=== PATIENT | male | born 1955 | race African-American/Black ===

== ENCOUNTER 2017-02-16 11:39 | Emergency (ER) | payer OTHER ==
[~2017-02-16] VITALS: Ht 177.8 cm; Wt 90.7 kg
[~2017-02-16 11:39] MED LIST: ASPIR 8181 MG PO; CO-Q-10 200 MG-1 SGL PO; MASON NATURAL1200 MG PO
--- NOTE | 2017-02-16 12:53 | ED SKIN/ALLERGY COMPLAINT ---
History of Present Illness General Chief Complaint: Laceration Procedure Stated Complaint: LAC TO RT HAND Source: patient Exam Limitations: no limitations Vital Signs & Intake/Output Vital Signs & Intake/Output Vital Signs Date Time Temp Pulse Resp B/P B/P Pulse O2 O2 Flow FiO2 Mean Ox Delivery Rate 02/16 1330 97.0 70 17 128/60 96 Room Air 02/16 1141 97.3 71 18 132/65 97 Room Air Room Air ED Intake and Output 02/17 0000 02/16 1200 Intake Total Output Total Balance Patient 200 lb Weight Weight Reported by Patient Measurement Method Allergies Coded Allergies: NO KNOWN ALLERGIES (08/27/14) Reconcile Medications Aspirin (Ecotrin) 81 MG TABLET.DR 1 TAB PO DAILY HEART HEALTH (Reported) Coenzyme Q10/Vitamin E (Co-Q-10 200 MG-1 Iu) 1 SGL SGL 1 SGL PO DAILY SUPPLEMENT (Reported) OMEGA-3 FATTY ACIDS/FISH OIL (Fish Oil 1,200 MG Softgel) 360 MG-1,200 MG CAPSULE 1 SGL PO DAILY SUPPLEMENT (Reported) Triage Note: TRIAGE: 62 Y/O MALE PRESENTS C/O 1 INCH LAC TO RIGHT HAND YESTERDAY. NO ACTIVE BLEEDING NOTED. TELFA PPLIED TO LAC IN TRIAGE AFTER PATIENT SUCCESSFULLY ABLE TO WASH HIS HANDS WITH SOAP AND WATER. Triage Nurses Notes Reviewed? yes Onset: Abrupt Duration: hour(s): (18), constant, continues in ED Timing: single episode today Severity: mild, moderate Severity Numbers: 4 Location: hands (rt) No Modifying Factors: none HPI: 62-year-old male with no significant past medical history presents for evaluation of a laceration to the dorsum of the right hand. Patient reports possibly 18 hours ago he was in his backyard cleaning his grill when he accidentally scraped his having as a sharp piece of metal. Patient reports he immediately washed the area and applied a dressing to control bleeding. He denies any other injuries. Pain is located around the laceration on the dorsum of the right hand. Is worse than typical movement or touching the area. Patient currently reports the pain is a 4 out of 10 and does not radiate. No other associated symptoms. He is not up-to-date on tetanus. Past History Travel History Traveled to [place] past 21 day No Medical History Any Pertinent Medical History? see below for history Neurological: NONE EENT: NONE Cardiovascular: NONE Respiratory: NONE Gastrointestinal: NONE Hepatic: NONE Renal: NONE Musculoskeletal: NONE Psychiatric: NONE Endocrine: NONE Blood Disorders: NONE Cancer(s): NONE OTR REFRIGERATED CDL TRUCK DRIVER/Reproductive: NONE Surgical History Surgical History: none Psychosocial History What is your primary language Turkmen Tobacco Use: Never used ETOH Use: denies use Illicit Drug Use: denies illicit drug use Family History Hx Contributory? Yes Review of Systems Review of Systems Constitutional: Reports: no symptoms. EENTM: Reports: no symptoms. Respiratory: Reports: no symptoms. Cardiovascular: Reports: no symptoms. GI: Reports: no symptoms. Genitourinary: Reports: no symptoms. Musculoskeletal: Reports: no symptoms. Skin: Reports: see HPI (laceration). Neurological/Psychological: Reports: no symptoms. Hematologic/Endocrine: Reports: no symptoms. Immunologic/Allergic: Reports: no symptoms. All Other Systems: Reviewed and Negative Physical Exam Physical Exam General Appearance: well developed/nourished, no apparent distress, alert, awake Head: atraumatic, normal appearance Eyes: Bilateral: normal appearance, PERRL, EOMI. Ears, Nose, Throat: normal pharynx, normal ENT inspection, hearing grossly normal Neck: normal inspection, supple, full range of motion Respiratory: normal breath sounds, chest non-tender, no respiratory distress Cardiovascular: regular rate/rhythm, normal peripheral pulses Peripheral Pulses: 2+ radial (R), 2+ radial (L) Gastrointestinal: normal bowel sounds, soft, non-tender Back: normal inspection, normal range of motion Extremities: normal capillary refill, normal range of motion, no edema Neurologic/Psych: no motor/sensory deficits, awake, alert, oriented x 3, normal gait, normal mood/affect Skin: normal color, warm/dry Skin Problem Location: upper extremities (rt hand dorsum) Skin Problem Character: linear (laceration) Lymphatic: no anterior cervical enrique Comments: There is a 1.5 cm linear laceration located on the dorsum of the right hand. No foreign bodies. Full range of motion of the digits of the right hand. Neurovascular supply intact. Progress Differential Diagnosis: abscess/cellulitis, allergic reaction, laceration, tendon injury, fb Plan of Care: Current Medications Sig/Braden Start time Last Medication Dose Stop Time Status Admin Tetanus/Diphtheria 0.5 ML ONCE ONE 02/16 1315 UNVr Toxoids Adsorbed 02/16 1316 (Decavac) Consent obtained. Lidocaine 1% without epi administered for local pain control. Wound was debrided and sutured using 4 4-0 nylon simple interrupted sutures. Dressing applied. Tetanus updated. Patient will be discharged home with wound care instructions. Tylenol as needed for pain. Return to emergency department or primary care doctor in 7-10 days for suture removal. Patient nontoxic appearing at discharge he is in agreement with the plan. (FIDELIA LEIVA PA-C) Departure Departure Disposition: HOME OR SELF CARE Condition: Stable Clinical Impression Primary Impression: Laceration of hand Qualifiers: Encounter type: initial encounter Foreign body presence: without foreign body Laterality: right Qualified Code: S61.411A - Laceration without foreign body of right hand, initial encounter Referrals: TANIYA RIVER MD (PCP/Family) Additional Instructions: rest and keep the area clean and dry. Change dressing and apply bacitracin once daily for the next 3-4 days. After that keep the wound open to air dry. Try to avoid excessive movement of the hand. Use Tylenol or ibuprofen as needed for pain. Look out for signs of infection such as redness swelling discharge or pain. Sutures will be removed in 7 days. Return to the emergency Department with any concerns. Departure Forms: Customer Survey General Discharge Information Procedures Laceration/Wound Repair Laceration/Wound Repair: Wound Location: upper extremity (rt hand dorsum) Wound's Depth, Shape: linear, subcutaneous Wound Length (cm): 1.5 Wound Explored: clean, no foreign body removed Irrigated w/ Saline (ccs): 20 Betadine Prep? Yes Anesthesia: 1% lidocaine Volume Anesthetic (ccs): 4 Wound Debrided: moderate Wound Repaired With: sutures Suture Size/Type: 4:0, nylon Number of Sutures: 4 Layer Closure? No Sterile Dressing Applied: Yes Splint Applied? No Date of Last Tetanus: 02/17/17 Tetanus Status: not up to date
[2017-02-16 13:30] VITALS: BP 128/60
== END 2017-02-16 13:55 ==
LOC: ERH 11:39
DX: S61.411A Laceration without foreign body of right hand, initial encounter (principal); W45.8XXA Other foreign body or object entering through skin, initial encounter; Y93.G2 Activity, grilling and smoking food; Y92.9 Unspecified place or not applicable
CPT/HCPCS: 90471; 90714

== ENCOUNTER 2017-11-23 18:10 | Emergency (ER) | payer OTHER ==
--- NOTE | 2017-11-23 18:56 | ED GI/GU/ABDOMINAL COMPLAINT ---
History of Present Illness General Chief Complaint: Abdominal Pain/Flank Pain Stated Complaint: ABD PAIN, NAUSEA AND DIARRHEA Source: patient Exam Limitations: no limitations Vital Signs & Intake/Output Vital Signs & Intake/Output Vital Signs Date Time Temp Pulse Resp B/P B/P Pulse O2 O2 Flow FiO2 Mean Ox Delivery Rate 11/23 2038 98.6 67 18 124/82 99 Room Air 11/23 1816 96.2 67 18 178/79 96 Room Air ED Intake and Output 11/24 0000 11/23 1200 Intake Total 1000 Output Total Balance 1000 Intake, IV 1000 Intake, Oral 0 Patient 200 lb Weight Allergies Coded Allergies: NO KNOWN ALLERGIES (08/27/14) Reconcile Medications Aspirin (Ecotrin) 81 MG TABLET.DR 1 TAB PO DAILY HEART HEALTH (Reported) Coenzyme Q10/Vitamin E (Co-Q-10 200 MG-1 Iu) 1 SGL SGL 1 SGL PO DAILY SUPPLEMENT (Reported) Hydrocodone/Acetaminophen (Slick 5-325 Tablet) 5 MG-325 MG TABLET 1-2 TAB PO Q4-6 PRN PRN pain OMEGA-3 FATTY ACIDS/FISH OIL (Fish Oil 1,200 MG Softgel) 360 MG-1,200 MG CAPSULE 1 SGL PO DAILY SUPPLEMENT (Reported) Omeprazole 20 MG TABLET.DR 1 TAB PO DAILY acid reflux Ondansetron (Zofran Odt) 4 MG TAB.RAPDIS 1 TAB SL TID PRN nausea Triage Note: PER PT THIRD TIME THIS MONTH, MID ABD PAIN PT UNABLE TO DETERMINE ANY CORALATION WITH EATING OR DRINKING AND PAIN, NO NVD BUT SOETIMES FEELS LIKE I WANT TO BE SICK PT VERY VAGUE Triage Nurses Notes Reviewed? yes Onset: Abrupt Duration: day(s): (2), changing over time, continues in ED, getting worse Timing: recent history Quality/Severity: cramping, moderate Severity Numbers: 8 Location: generalized abdomen Radiation: no radiation Activities at Onset: none Prior Abdominal Problems: similar symptoms Past Sexual History: Unobtainable at this time No Modifying Factors: none Modifying Factors: Worsens With: palpation. Associated Symptoms: abdominal pain, loss of appetite, nausea/vomiting HPI: 62-year-old male with no past medical history presents for evaluation of abdominal pain nausea and vomiting. Patient states that this current episode started a few days ago that has been persistent. The pain is located diffusely in his abdomen worse in the periumbilical area does not radiate. He describes it as cramping. The pain will intermittently get more severe. It is associated with nausea or vomiting. No diarrhea no melena. Patient states he had similar symptoms on 3 separate occasions over the past 1-2 months. This is first time being evaluated this the most severe episode. He currently rates pain as an 8 out of 10. He is not taking any medicine for this. He denies chest pain shortness of breath hemoptysis recent travel or recent antibiotics. He states that he is not eating and drinking much due to his nausea. Nothing seems to make the pain better or worse. No recent abdominal surgeries. (Don Dent) Past History Travel History Traveled to [place] past 21 day No Medical History Any Pertinent Medical History? see below for history Neurological: NONE EENT: NONE Cardiovascular: NONE Respiratory: NONE Gastrointestinal: NONE Hepatic: NONE Renal: NONE Musculoskeletal: NONE Psychiatric: NONE Endocrine: NONE Blood Disorders: NONE Cancer(s): NONE ARCHITECT INTERNSHIP/Reproductive: NONE Tetanus Vaccine: 02/17/17 Surgical History Surgical History: none Psychosocial History What is your primary language Nepali Tobacco Use: Never used Family History Hx Contributory? No (Don Dent) Review of Systems Review of Systems Constitutional: Reports: no symptoms. EENTM: Reports: no symptoms. Respiratory: Reports: no symptoms. Cardiovascular: Reports: no symptoms. GI: Reports: see HPI, abdominal pain, nausea, vomiting. Genitourinary: Reports: no symptoms. Musculoskeletal: Reports: no symptoms. Skin: Reports: no symptoms. Neurological/Psychological: Reports: no symptoms. Hematologic/Endocrine: Reports: no symptoms. Immunologic/Allergic: Reports: no symptoms. All Other Systems: Reviewed and Negative (Don Dent) Physical Exam Physical Exam General Appearance: well developed/nourished, no apparent distress, alert, awake Head: atraumatic, normal appearance Eyes: Bilateral: normal appearance, PERRL, EOMI, normal inspection. Ears, Nose, Throat, Mouth: hearing grossly normal, moist mucous membrane Neck: normal inspection, supple, full range of motion Respiratory: normal breath sounds, chest non-tender, no respiratory distress, lungs clear Cardiovascular: regular rate/rhythm, normal peripheral pulses Peripheral Pulses: 2+ radial (R), 2+ radial (L) Gastrointestinal: normal bowel sounds, soft, no organomegaly, tenderness ( diffuse ) Rectal: normal inspection, normal rectal tone, heme negative stool Back: normal inspection, normal range of motion, no vertebral tenderness Extremities: normal range of motion Neurologic/Psych: no motor/sensory deficits, awake, alert, oriented x 3, normal gait Skin: intact, normal color, warm/dry Core Measures ACS in differential dx? No Sepsis Present: No Sepsis Focused Exam Completed? No (Da MARTIN,Don) Progress Differential Diagnosis: appendicitis, biliary colic, bowel obstruction, colon cancer, cholecystitis, diverticulitis, gastritis, hepatitis, ischemic bowel, inflamm bowel dis, pancreatitis, peptic ulcer, PUD/GERD, pyelonephritis, SBO, ureterolithiasis, urinary retention, urethritis, UTI/pyelo Plan of Care: Orders Procedure Date/time Status TROPONIN LEVEL 11/23 2029 Complete LIPASE 11/23 2029 Complete COMPREHENSIVE METABOLIC PANEL 11/23 2029 Complete CBC WITHOUT DIFFERENTIAL 11/23 2029 Complete EKG 11/23 1859 Active Laboratory Tests 11/23/172146: Urine Color Cancelled, Urine Clarity Cancelled, Urine pH Cancelled, Ur Specific [place] Cancelled, Urine Protein Cancelled, Urine Ketones Cancelled, Urine Nitrite Cancelled, Urine Bilirubin Cancelled, Urine Urobilinogen Cancelled, Ur Leukocyte Esterase Cancelled, Ur Microscopic Cancelled, Urine Hemoglobin Cancelled, Urine Glucose Cancelled 11/23/172112: Anion Gap 15, Estimated GFR > 60, BUN/Creatinine Ratio 10.0, Glucose 108 H, Calcium 10.1, Total Bilirubin 0.6, AST 31, ALT 29, Alkaline Phosphatase 60, Troponin I < 0.01, Total Protein 7.8, Albumin 4.5, Globulin 3.3, Albumin/ Globulin Ratio 1.4, Lipase 93, CBC w Diff NO MAN DIFF REQ, RBC 4.64 L, MCV 83.3 , MCH 26.9 L, MCHC 32.3 L, RDW 14.5, MPV 8.7, Gran % 86.1 H, Lymphocytes % 11.7 L, Monocytes % 2.0, Eosinophils % 0.1, Basophils % 0.1, Absolute Granulocytes 6.0, Absolute Lymphocytes 0.8 L, Absolute Monocytes 0.1, Absolute Eosinophils 0, Absolute Basophils 0 11/23/171944: Sodium Cancelled, Potassium Cancelled, Chloride Cancelled, Carbon Dioxide Cancelled, Anion Gap Cancelled, BUN Cancelled, Creatinine Cancelled, BUN/ Creatinine Ratio Cancelled, Glucose Cancelled, Calcium Cancelled, Total Bilirubin Cancelled, AST Cancelled, ALT Cancelled, Alkaline Phosphatase Cancelled, Troponin I Cancelled, Total Protein Cancelled, Albumin Cancelled, Globulin Cancelled, Albumin/Globulin Ratio Cancelled, Lipase Cancelled, CBC w Diff Cancelled, WBC Cancelled, RBC Cancelled, Hgb Cancelled, Hct Cancelled, MCV Cancelled, MCH Cancelled, MCHC Cancelled, RDW Cancelled, Plt Count Cancelled, MPV Cancelled Patient seen and evaluated. He has diffuse abdominal tenderness to palpation. Is also reporting nausea. Vital signs are stable. Patient will be medicated with IV Tylenol IV fluids and Zofran. We'll check basic labs CT scan EKG. Patient is still reporting significant pain despite Tylenol. He was given 4 mg of IV morphine. Blood work not showing any acute findings. Rectal exam is negative for blood. CT scan does not show any acute findings but there are some large gallstones in the gallbladder. He has no right upper quadrant tenderness on reevaluation. No signs of inflammation of the gallbladder. LFTs are within normal limits normal alkaline phosphatase. Patient was given a GI cocktail and IV Protonix. He reports significant improvement after this. He was able tolerate food and fluids here. Patient will be given a prescription for omeprazole and Zofran and Slick. Advised him to restaurant plenty of fluids avoid greasy fatty spicy foods. Follow-up with general surgery regarding cholelithiasis. Discussed return precautions in detail. Patient appears well he agrees the plan. Diagnostic Imaging: Viewed by Me: CT Scan. Discussed w/RAD: CT Scan. Radiology Impression: PATIENT: PETRONA PEREZ PRESENT AGE: 62 PATIENT ACCOUNT NO: [id number] : 53 LOCATION: [facility] ORDERING PHYSICIAN: Don MARTIN SERVICE DATE: 11/23/17 EXAM TYPE: CAT - CT ABD & PELVIS W IV CONTRAST EXAMINATION: CT ABDOMEN AND PELVIS WITH CONTRAST CLINICAL INFORMATION: Left lower quadrant and right upper quadrant pain. COMPARISON: None TECHNIQUE: Multidetector volumetric imaging was performed of the abdomen and pelvis following IV administration of 95 mL of Optiray 320 intravenous contrast. Sagittal and coronal reformatted images were obtained on the technologist's workstation. DLP: 518.90 mGy-cm FINDINGS: LUNG BASES: The visualized lung bases are unremarkable. LIVER, GALLBLADDER, AND BILIARY TREE: The liver is normal in size, shape, and attenuation. No focal hepatic lesion or biliary ductal dilatation is present. There is a large peripherally calcified gallstone in the dependent gallbladder near the gallbladder neck measuring up to 2.6 cm. No gallbladder wall thickening or pericholecystic fluid. The common bile duct is normal. PANCREAS: Unremarkable. SPLEEN: Punctate calcifications in the spleen likely represents sequela of granulomatous disease. ADRENAL GLANDS: Unremarkable. KIDNEYS AND URETERS: The kidneys are normal in size, shape, and attenuation. No hydronephrosis, hydroureter, or calculi seen. Two tiny hypodensities in the right kidneys are too small to characterize but most likely represent tiny renal cysts. No perinephric stranding. BLADDER: Unremarkable. GASTROINTESTINAL TRACT: The small and large bowel are unremarkable. No significant colonic diverticula. The appendix is nonvisualized however there are no inflammatory changes in the expected location of the appendix to suggest appendicitis. ABDOMINAL WALL: No significant hernia is appreciated. LYMPH NODES: Normal. VASCULAR: Unremarkable. PELVIC VISCERA: Unremarkable. OSSEOUS STRUCTURES : Prominent flowing paravertebral osteophytes at several levels of the lower thoracic spine. No acute osseous findings. Mild to moderate osteophytic changes of both hips. IMPRESSION: Cholelithiasis without evidence of cholecystitis. If there remains concern for cholecystitis, HIDA scan would be recommended for further evaluation. No acute findings of the abdomen or pelvis. DICTATED BY: David Campos MD DATE/TIME DICTATED:11/23/172221 [employer] REPAIRER:TERRY DATE/TIME TRANSCRIBED:11/23/172221 CONFIDENTIAL, DO NOT COPY WITHOUT APPROPRIATE AUTHORIZATION. <Electronically signed in Other Vendor System> SIGNED BY: David Campos MD 11/23/172231 Initial ED EKG: normal sinus rhythm, LVH (Da MARTIN,Odn) Departure Departure Disposition: HOME OR SELF CARE Condition: Stable Clinical Impression Primary Impression: Abdominal pain Qualifiers: Abdominal location: generalized Qualified Code: R10.84 - Generalized abdominal pain Referrals: Miles LEON,Nick (PCP/Family) Magdaleno LEON,Rafael Parr Additional Instructions: Rest and drink plenty of fluids. Eat bland foods like bananas rice applesauce and toast. Use Zofran as needed for nausea. Take omeprazole as directed to reduce acid production. Slick for abdominal pain. Complete outpatient ultrasound as soon as possible. Make a follow-up appointment with her primary care doctor and provided general surgeon as soon as possible. Monitor symptoms closely. If you have worsening pain, black stool, blood in the stool, unable tolerate fluids, fever or any other concerns return immediately. Departure Forms: Customer Survey General Discharge Information Prescriptions: Current Visit Scripts Omeprazole 1 TAB PO DAILY #30 TAB Ondansetron (Zofran Odt) 1 TAB SL TID PRN nausea #15 TAB Hydrocodone/Acetaminophen (Slick 5-325 Tablet) 1-2 TAB PO Q4-6 PRN PRN pain #10 TAB (Don Dent) PA/FRUIT OR NUT FARMER Co-Sign Statement Statement: ED Attending supervision documentation- [] I saw and evaluated the patient. I have also reviewed all the pertinent lab results and diagnostic results. I agree with the findings and the plan of care as documented in the PA's/FRUIT OR NUT FARMER's documentation. [x] I have reviewed the ED Record and agree with the PA's/FRUIT OR NUT FARMER's documentation. [] Additions or exceptions (if any) to the PAs/FRUIT OR NUT FARMER's note and plan are summarized below: [] (Kar LEON,Shaq Macedo)
[2017-11-23 20:39] VITALS: BP 124/82
[2017-11-23 21:45] LABS: ABSOLUTE BASOPHIL COUNT 0 /CUMM (0.0-0.2); ABSOLUTE EOSINOPHIL COUNT 0 /CUMM (0.0-0.7); ABSOLUTE LYMPH COUNT 0.8 /CUMM (1.2-3.4); ABSOLUTE MONOCYTE COUNT 0.1 /CUMM (0.10-0.60); BASOPHIL % 0.1 % (0.0-2.0); EOSINOPHIL % 0.1 % (0-5); GRANULOCYTE % 86.1 % (42.2-75.2); HEMATOCRIT 38.6 % (42-52); MEAN CORPUSCULAR HGB 26.9 PG (27.0-31.0); MEAN CORPUSCULAR HGB CONC 32.3 G/DL (33.0-37.0); MEAN CORPUSCULAR VOLUME 83.3 FL (80.0-94.0); MEAN PLATELET VOLUME 8.7 FL (7.4-10.4); PLATELET COUNT 303 /CUMM (130-400); RBC DISTRIBUTION WIDTH 14.5 % (11.5-14.5); RED BLOOD CELL CT 4.64 /CUMM (4.70-6.10)
--- NOTE | 2017-11-23 22:32 | CT SCAN REPORT ---
EXAMINATION: CT ABDOMEN AND PELVIS WITH CONTRAST CLINICAL INFORMATION: Left lower quadrant and right upper quadrant pain. COMPARISON: None TECHNIQUE: Multidetector volumetric imaging was performed of the abdomen and pelvis following IV administration of 95 mL of Optiray 320 intravenous contrast. Sagittal and coronal reformatted images were obtained on the technologist's workstation. DLP: 518.90 mGy-cm FINDINGS: LUNG BASES: The visualized lung bases are unremarkable. LIVER, GALLBLADDER, AND BILIARY TREE: The liver is normal in size, shape, and attenuation. No focal hepatic lesion or biliary ductal dilatation is present. There is a large peripherally calcified gallstone in the dependent gallbladder near the gallbladder neck measuring up to 2.6 cm. No gallbladder wall thickening or pericholecystic fluid. The common bile duct is normal. PANCREAS: Unremarkable. SPLEEN: Punctate calcifications in the spleen likely represents sequela of granulomatous disease. ADRENAL GLANDS: Unremarkable. KIDNEYS AND URETERS: The kidneys are normal in size, shape, and attenuation. No hydronephrosis, hydroureter, or calculi seen. Two tiny hypodensities in the right kidneys are too small to characterize but most likely represent tiny renal cysts. No perinephric stranding. BLADDER: Unremarkable. GASTROINTESTINAL TRACT: The small and large bowel are unremarkable. No significant colonic diverticula. The appendix is nonvisualized however there are no inflammatory changes in the expected location of the appendix to suggest appendicitis. ABDOMINAL WALL: No significant hernia is appreciated. LYMPH NODES: Normal. VASCULAR: Unremarkable. PELVIC VISCERA: Unremarkable. OSSEOUS STRUCTURES: Prominent flowing paravertebral osteophytes at several levels of the lower thoracic spine. No acute osseous findings. Mild to moderate osteophytic changes of both hips. IMPRESSION: Cholelithiasis without evidence of cholecystitis. If there remains concern for cholecystitis, HIDA scan would be recommended for further evaluation. No acute findings of the abdomen or pelvis.
[2017-11-23] MEDS ORDERED: NORCO 5-325 TA1 EACH PO ×3 (23:07→23:14)
[2017-11-23] MEDS ORDERED: OMEPRAZOLE20 M3 PO (23:07)
[2017-11-23] MEDS ORDERED: ZOFRAN ODT4 M1 SL (23:07)
== END 2017-11-23 23:23 ==
LOC: ERH 18:10
PROVIDERS: Physician Assistant Medical
DX: R10.33 Periumbilical pain (principal)
CPT/HCPCS: 74177; 93005; 93010; 96374; 96375; J0131; J2405